=== PATIENT | male | born 1955 | race Caucasian/White ===

== ENCOUNTER 2017-02-12 16:19 | Emergency (ER) | payer BC ==
[2017-02-12 16:24] VITALS: TEMP 97.9
--- NOTE | 2017-02-12 16:53 | ED ---
General Adult HPI - General Chief complaint: ENT Stated complaint: Face Swelling Time Seen by Provider: 02/12/17 16:35 Source: patient, RN notes reviewed Mode of arrival: ambulatory Limitations: no limitations - History of Present Illness Initial comments: 61 yo male presents to the ER with cc of right sided facial swelling and some tenderness to palpation. Patient states this started yesterday when he was eating something. He HAD A LITTLE BIT OF DISCOMFORT. PATIENT STATES IMMEDIATELY GETS IS SOMEWHAT TIGHT SENSATION AND PAIN TO THE RIGHT SIDE OF THE FACE. HE STATES THAT HE'S BEEN IRREGULAR BEFORE. DENIES ANY FEVER CHILLS NAUSEA OR VOMITING WITH THIS. THEY WERE CONCERNED DUE TO THE PATIENT'S CONTINUED SYMPTOMS SO THEY THOUGHT THAT THEY SHOULD BE EVALUATED. Patient denies any recent fever, chills, shortness of breath, chest pain, back pain, abdominal pain, nausea vomiting, numbness or tingling, dysuria or hematuria, constipation or diarrhea, headaches or visual changes, or any other current symptoms. - Related Data Home Medications Medication Instructions Recorded Confirmed Aspirin [Adult Low Dose Aspirin EC] 81 mg PO DAILY 02/12/17 02/12/17 Cholecalciferol (Vitamin D3) 2,000 unit PO DAILY 02/12/17 02/12/17 [Vitamin D3] Fish Oil/Dha/Epa [Fish Oil 1,200 1 cap PO DAILY 02/12/17 02/12/17 mg Fish Oil] Multivitamins, Thera [Multivitamin 1 tab PO DAILY 02/12/17 02/12/17 (formulary)] Ubidecarenone [Co Q-10] 1 cap PO DAILY 02/12/17 02/12/17 Previous Rx's Medication Instructions Recorded Atorvastatin [Lipitor] 80 mg PO HS #30 tab 10/24/13 Clindamycin [Cleocin] 450 mg PO Q8HR #90 capsule 02/12/17 Allergies Allergy/AdvReac Type Severity Reaction Status Date / Time amoxicillin trihydrate AdvReac Nausea & Verified 02/12/17 16:39 [From Augmentin] Vomiting codeine AdvReac Nausea & Verified 02/12/17 16:39 Vomiting potassium clavulanate AdvReac Nausea & Verified 02/12/17 16:39 [From Augmentin] Vomiting Review of Systems ROS Statement: Those systems with pertinent positive or pertinent negative responses have been documented in the HPI. ROS Other: All systems not noted in ROS Statement are negative. Past Medical History Past Medical History: Hyperlipidemia, Myocardial Infarction (NM), Sleep Apnea/ CPAP/BIPAP Additional Past Medical History / Comment(s): kidney stones x 9, [place] with use of hearing aids Last Myocardial Infarction Date:: 10/22/13 History of Any Multi-Drug Resistant Organisms: None Reported Past Surgical History: No Surgical Hx Reported, Heart Catheterization, Heart Catheterization With Stent Additional Past Surgical History / Comment(s): Kidney stone post lithotripsy and post kidney stone extraction surgically. History of obstructive sleep apnea. Right hand skin graft for nonhealing lesion. Past Anesthesia/Blood Transfusion Reactions: Postoperative Nausea & Vomiting ( PONV) Date of Last Stent Placement:: 10/22/2013 Past Psychological History: No Psychological Hx Reported Smoking Status: Former smoker Past Alcohol Use History: None Reported Past Drug Use History: None Reported - Past Family History Father Family Medical History: Vascular Disorder (Father at age of 73 from a brain aneurysm and he has kidney stones.) Additional Family Medical History / Comment(s): kidney stones Mother Family Medical History: Diabetes Mellitus (Mother at age of 52 from diabetes mellitus type 2) Sister(s) Family Medical History: No Reported History (Patient has one sister no major medical problems) Daughter(s) Family Medical History: No Reported History (Patient has one daughter no major medical problems) Son(s) Family Medical History: No Reported History (Patient has one son no major medical problems.) General Exam - General Exam Comments Initial Comments: General exam: Alert, active, comfortable in no apparent distress Head: Normocephalic, Swelling over the Right Lateral. Face. Some Swelling over the Parotid Gland However Tenderness Patient over the Salivary Gland Eyes: Normal reaction of pupils, equal size, normal range of extraocular motion Ears: normal external ear canals, pink tympanic membranes with normal cone of light Nose: clear with pink turbinates Throat: no erythema or exudates with normal sized tonsils Neck: no masses, no nuchal rigidity Chest: no chest wall deformity Lungs: equal air entry with no crackles or wheeze CVS: S1 and S2 normal with no audible mumurs, regular rhythm, femorals equal on both sides. Abdomen: no hepatosplenomegaly, normal bowel sounds, no guarding or rigidity Spine: no scoliosis or deformity Skin: no rashes Neurological: No focal deficits, tone is normal in all 4 extremities Limitations: no limitations Course Vital Signs 02/12/17 16:21 Temperature 97.9 F Pulse Rate 78 Respiratory 18 Rate Blood Pressure 136/85 O2 Sat by Pulse 98 Oximetry Medical Decision Making - Medical Decision Making 61-year-old female presents with what appears to be salivary gland inflammation. We'll start him on antibiotics. We discussed using sour candies. We discussed follow-up return parameters all patient's questions. He stated that he understood he is agreement this plan. All questions have been answered. He will be discharged. - Lab Data Result diagrams: 02/12/17 16:55 Lab Results 02/12/17 Range/Units 16:55 WBC 8.5 (3.8-10.6) k/uL RBC 5.56 (4.30-5.90) m/uL Hgb 16.1 (13.0-17.5) gm/dL Hct 50.8 (39.0-53.0) % MCV 91.4 (80.0-100.0) fL MCH 29.0 (25.0-35.0) pg MCHC 31.7 (31.0-37.0) g/dL RDW 14.3 (11.5-15.5) % Plt Count 223 (150-450) k/uL Neutrophils % 50 % Lymphocytes % 35 % Monocytes % 6 % Eosinophils % 7 % Basophils % 1 % Neutrophils # 4.2 (1.3-7.7) k/uL Lymphocytes # 3.0 (1.0-4.8) k/uL Monocytes # 0.5 (0-1.0) k/uL Eosinophils # 0.6 (0-0.7) k/uL Basophils # 0.1 (0-0.2) k/uL Disposition Clinical Impression: Parotitis, acute Disposition: HOME SELF-CARE Condition: Stable Instructions: Mumps in Adults (ED), Parotid Duct Obstruction (ED) Additional Instructions: Please use medication as discussed. Please follow up with family doctor if symptoms have not improved over the next two days. Please return to the emergency room if your symptoms increase or worsen or for any other concerns. Prescriptions: Clindamycin [Cleocin] 450 mg PO Q8HR #90 capsule Referrals: Linwood Gold DO [Primary Care Provider] - 1-2 days Time of Disposition: 17:26
[2017-02-12 17:07] LABS: Basophils # (A) 0.1 k/uL (0-0.2); Basophils % (A) 1 %; CH 29.3; CHCM 32.3; Eosinophils # (A) 0.6 k/uL (0-0.7); Eosinophils % (A) 7 %; HCT 50.8 % (39.0-53.0); HDW 2.25; HGB 16.1 gm/dL (13.0-17.5); Luc # (Auto) 0.13; Luc % (Auto) 2; Lymphocytes % (A) 35 %; MCHC 31.7 g/dL (31.0-37.0); MCV 91.4 fL (80.0-100.0); Mean Platelet Volume 6.9; Monocytes # (A) 0.5 k/uL (0-1.0); Monocytes % (A) 6 %; Neutrophils # (A) 4.2 k/uL (1.3-7.7); Neutrophils % (A) 50 %; RBC 5.56 m/uL (4.30-5.90); RDW 14.3 % (11.5-15.5); WBC 8.5 k/uL (3.8-10.6); WBC (Perox) 8.19
[2017-02-12 17:17] LABS: ALT 38 U/L (21-72); AST 26 U/L (17-59); Alkaline Phosphatase 89 U/L (38-126); Anion Gap 10 mmol/L; Blood Urea Nitrogen 14 mg/dL (9-20); Carbon Dioxide 27 mmol/L (22-30); Chloride 107 mmol/L (98-107); Glucose 103 mg/dL (74-99); Non-African American GFR(MDRD) >60 (>60 ml/min/1.73 sqM); Potassium 4.6 mmol/L (3.5-5.1); Sodium 144 mmol/L (137-145); Total Bilirubin 0.5 mg/dL (0.2-1.3); Total Protein 7.7 g/dL (6.3-8.2)
[2017-02-12 17:24] LABS: Amylase 609 U/L (30-110)
[2017-02-12 17:36] VITALS: BP 132/72; PULSE 95; RESP 16
== END 2017-02-12 17:35 | disposition home or self-care (01) ==
LOC: EC 16:19
DX: K11.21 Acute sialoadenitis (principal); I25.2 Old myocardial infarction; Z87.891 Personal history of nicotine dependence; Z79.82 Long term (current) use of aspirin; Z79.899 Other long term (current) drug therapy; Z88.0 Allergy status to penicillin; Z88.5 Allergy status to narcotic agent
CPT/HCPCS: 36415; 80053; 82150; 83690; 85025; 99283

== ENCOUNTER 2017-04-09 15:17 | Emergency (ER) | payer BC ==
[2017-04-09 15:38] VITALS: RESP 16
--- NOTE | 2017-04-09 16:26 | ED ---
General Adult HPI - General Chief complaint: GI Bleed Stated complaint: Bleeding Rectrum Time Seen by Provider: 04/09/17 15:50 Source: patient, RN notes reviewed Mode of arrival: ambulatory Limitations: no limitations - History of Present Illness Initial comments: Chief complaint and history of present illness is a 61-year-old male who reports that he had some blood per rectum. There is a small amount of bloody mucus mixed within the stool 1 stool sample. Yesterday the patient reports he had an episode where he felt flushed nauseated and had dry heaves and then it stopped spontaneously. He denies having trouble with hemorrhoids in the past denies constipation or hard stools that might cause fissure. Denies any discomfort with bowel movements. Otherwise patient feels normal. His last colonoscopy was 3 years ago. - Related Data Home Medications Medication Instructions Recorded Confirmed Aspirin [Adult Low Dose Aspirin EC] 81 mg PO DAILY 02/12/17 04/09/17 Cholecalciferol (Vitamin D3) 2,000 unit PO DAILY 02/12/17 04/09/17 [Vitamin D3] Fish Oil/Dha/Epa [Fish Oil 1,200 1 cap PO DAILY 02/12/17 04/09/17 mg Fish Oil] Multivitamins, Thera [Multivitamin 1 tab PO DAILY 02/12/17 04/09/17 (formulary)] Ubidecarenone [Co Q-10] 1 cap PO DAILY 02/12/17 04/09/17 Atorvastatin [Lipitor] 80 mg PO DAILY 04/09/17 04/09/17 Allergies Allergy/AdvReac Type Severity Reaction Status Date / Time amoxicillin trihydrate AdvReac Nausea & Verified 04/09/17 16:08 [From Augmentin] Vomiting codeine AdvReac Nausea & Verified 04/09/17 16:08 Vomiting potassium clavulanate AdvReac Nausea & Verified 04/09/17 16:08 [From Augmentin] Vomiting Review of Systems ROS Statement: Those systems with pertinent positive or pertinent negative responses have been documented in the HPI. Review of systems. Patient denies any headache chest pain shortness breath or problems. All systems are reviewed. Past medical problems significant for hyperlipidemia, previous CT, sleep apnea with CPAP multiple kidney stones. Surgeries include cardiac catheterization with one stent placed. Kidney stone removal and right hand skin graft. The patient's family history sister might have had a polyp removed. Patient has ALLERGIES to Augmentin and codeine. He does smoke strongly encouraged to stop denies alcohol use. ROS Other: All systems not noted in ROS Statement are negative. Past Medical History Past Medical History: Hyperlipidemia, Myocardial Infarction (CT), Sleep Apnea/ CPAP/BIPAP Additional Past Medical History / Comment(s): kidney stones x 9, [place] with use of hearing aids Last Myocardial Infarction Date:: 10/22/13 History of Any Multi-Drug Resistant Organisms: None Reported Past Surgical History: Heart Catheterization, Heart Catheterization With Stent Additional Past Surgical History / Comment(s): Kidney stone post lithotripsy and post kidney stone extraction surgically. History of obstructive sleep apnea. Right hand skin graft for nonhealing lesion. Past Anesthesia/Blood Transfusion Reactions: Postoperative Nausea & Vomiting ( PONV) Date of Last Stent Placement:: 10/22/2013 Past Psychological History: No Psychological Hx Reported Smoking Status: Former smoker Past Alcohol Use History: None Reported Past Drug Use History: None Reported - Past Family History Father Family Medical History: Vascular Disorder (Father at age of 73 from a brain aneurysm and he has kidney stones.) Additional Family Medical History / Comment(s): kidney stones Mother Family Medical History: Diabetes Mellitus (Mother at age of 52 from diabetes mellitus type 2) Sister(s) Family Medical History: No Reported History (Patient has one sister no major medical problems) Daughter(s) Family Medical History: No Reported History (Patient has one daughter no major medical problems) Son(s) Family Medical History: No Reported History (Patient has one son no major medical problems.) General Exam - General Exam Comments Initial Comments: General: The patient is awake and alert, in no distress, and does not appear acutely ill. Here because he noticed some blood per rectum and some mucus-like blood on the stool. Vital signs show temperature 97.1 pulse 70 respiratory rate 16 pulse ox 99% room air blood pressure 139/88 Eye: Pupils are equal, round and reactive to light, extra-ocular movements are intact ; there is normal conjunctiva bilaterally. No signs of icterus. Ears, nose, mouth and throat: There are moist mucous membranes and no oral lesions. Neck: The neck is supple, there is no tenderness, no anterior cervical lymphadenopathy , thyroid not enlarged. Cardiovascular: There is a regular rate and rhythm. No murmur, rub or gallop is appreciated. Respiratory: Lungs are clear to auscultation, respirations are non-labored, breath sounds are equal. No wheezes, stridor, rales, or rhonchi. Gastrointestinal: Soft, non-distended, non-tender abdomen without masses or organomegaly noted. There is no rebound or guarding present. No CVA tenderness. Bowel sounds are unremarkable. Rectal examination done with the assistance of nurse Elidia, follow stool to be weakly guaiac positive. No external hemorrhoids. No fissures appreciated. No palpable masses within examining finger. Back: There is no tenderness to palpation in the midline. There is no obvious deformity. No rashes noted. Musculoskeletal: Normal ROM, no tenderness, There is no pedal edema. There is no calf tenderness or swelling. Sensation intact. Pulses equal bilaterally 2+. Neurological: Alert oriented no deficits. Skin: Skin is warm and dry and no rashes or lesions are noted. Psychiatric: Cooperative, complaint of any depression or anxiety. Limitations: no limitations Course Vital Signs 04/09/17 15:34 Temperature 97.1 F L Pulse Rate 79 Respiratory 16 Rate Blood Pressure 139/88 O2 Sat by Pulse 99 Oximetry Medical Decision Making - Medical Decision Making medical decision making; patient's here because he noticed some dark colored blood in his stool. Patient's labs show white count of 8.3 hemoglobin 16 hematocrit of 49. INR 1.1. Potassium 4.7 with a BUN 16 creatinine 1.0 to the GFR greater than 60. Glucose 96. Stool guaiac negative. X-ray of the abdomen was done and reviewed by radiologist his findings are nonspecific nonobstructive bowel gas pattern is identified. There is a 80 more for us loop of bowel distended in the right midabdomen of unknown significance or etiology. Supine view of the pelvis. There is moderate amount of stool in the ascending colon. Soft tissue density in the pelvis is felt to be urinary bladder. Impression overall nonobstructive bowel gas pattern. As read by Dr. Richard The patient's labs were reviewed. X-rays reviewed with the patient. The patient did present obvious samples of blood. Stool guaiac though was negative. The plant this time the patient is not having any abdominal pain. No evidence of internal or external hemorrhoids. No fissures appreciated. The patient will be advised to call follow-up with his family physician. He's return emergency room develops abdominal pain or severe cramping or bleeding per rectum. Advised increase his fluids. Use Tylenol for discomfort. - Lab Data Result diagrams: 04/09/17 16:15 04/09/17 16:15 Lab Results 04/09/17 04/09/17 04/09/17 Range/Units 16:15 16:15 16:15 WBC 8.3 (3.8-10.6) k/uL RBC 5.45 (4.30-5.90) m/uL Hgb 16.1 (13.0-17.5) gm/dL Hct 49.3 (39.0-53.0) % MCV 90.3 (80.0-100.0) fL MCH 29.5 (25.0-35.0) pg MCHC 32.6 (31.0-37.0) g/dL RDW 14.1 (11.5-15.5) % Plt Count 237 (150-450) k/uL Neutrophils % 47 % Lymphocytes % 40 % Monocytes % 5 % Eosinophils % 4 % Basophils % 1 % Neutrophils # 3.9 (1.3-7.7) k/uL Lymphocytes # 3.4 (1.0-4.8) k/uL Monocytes # 0.4 (0-1.0) k/uL Eosinophils # 0.4 (0-0.7) k/uL Basophils # 0.1 (0-0.2) k/uL PT (9.0-12.0) sec INR (<1.2) APTT (22.0-30.0) sec Sodium 145 (137-145) mmol/L Potassium 4.7 (3.5-5.1) mmol/L Chloride 107 (98-107) mmol/L Carbon Dioxide 27 (22-30) mmol/L Anion Gap 11 mmol/L BUN 16 (9-20) mg/dL Creatinine 1.02 (0.66-1.25) mg/dL Est GFR (MDRD) Af Amer >60 (>60 ml/min/1.73 sqM) Est GFR (MDRD) Non-Af >60 (>60 ml/min/1.73 sqM) Glucose 96 (74-99) mg/dL Calcium 9.9 (8.4-10.2) mg/dL Total Bilirubin 0.5 (0.2-1.3) mg/dL AST 24 (17-59) U/L ALT 42 (21-72) U/L Alkaline Phosphatase 100 (38-126) U/L Total Creatine Kinase 122 (55-170) U/L CK-MB (CK-2) 0.9 (0.0-2.4) ng/mL CK-MB (CK-2) Rel Index 0.7 Total Protein 7.3 (6.3-8.2) g/dL Albumin 4.4 (3.5-5.0) g/dL Stool Occult Blood (Negative) 04/09/17 04/09/17 Range/Units 16:15 16:15 WBC (3.8-10.6) k/uL RBC (4.30-5.90) m/uL Hgb (13.0-17.5) gm/dL Hct (39.0-53.0) % MCV (80.0-100.0) fL MCH (25.0-35.0) pg MCHC (31.0-37.0) g/dL RDW (11.5-15.5) % Plt Count (150-450) k/uL Neutrophils % % Lymphocytes % % Monocytes % % Eosinophils % % Basophils % % Neutrophils # (1.3-7.7) k/uL Lymphocytes # (1.0-4.8) k/uL Monocytes # (0-1.0) k/uL Eosinophils # (0-0.7) k/uL Basophils # (0-0.2) k/uL PT 10.3 (9.0-12.0) sec INR 1.1 (<1.2) APTT 24.8 (22.0-30.0) sec Sodium (137-145) mmol/L Potassium (3.5-5.1) mmol/L Chloride (98-107) mmol/L Carbon Dioxide (22-30) mmol/L Anion Gap mmol/L BUN (9-20) mg/dL Creatinine (0.66-1.25) mg/dL Est GFR (MDRD) Af Amer (>60 ml/min/1.73 sqM) Est GFR (MDRD) Non-Af (>60 ml/min/1.73 sqM) Glucose (74-99) mg/dL Calcium (8.4-10.2) mg/dL Total Bilirubin (0.2-1.3) mg/dL AST (17-59) U/L ALT (21-72) U/L Alkaline Phosphatase (38-126) U/L Total Creatine Kinase (55-170) U/L CK-MB (CK-2) (0.0-2.4) ng/mL CK-MB (CK-2) Rel Index Total Protein (6.3-8.2) g/dL Albumin (3.5-5.0) g/dL Stool Occult Blood Negative (Negative) Disposition Clinical Impression: Hematochezia Disposition: HOME SELF-CARE Condition: Stable Instructions: Gastrointestinal Bleeding (ED), Rectal Bleeding (ED) Additional Instructions: Patient's fluids, use Tylenol for pain. Call follow up with your family physician for further evaluation and colonoscopy. If bleeding increases significantly return emergency room Referrals: Linwood Gold DO [Primary Care Provider] - 1-2 days Time of Disposition: 17:21
[2017-04-09 16:35] LABS: Basophils # (A) 0.1 k/uL (0-0.2); Basophils % (A) 1 %; Eosinophils # (A) 0.4 k/uL (0-0.7); Eosinophils % (A) 4 %; HCT 49.3 % (39.0-53.0); HGB 16.1 gm/dL (13.0-17.5); Lymphocytes # (A) 3.4 k/uL (1.0-4.8); Lymphocytes % (A) 40 %; MCH 29.5 pg (25.0-35.0); MCHC 32.6 g/dL (31.0-37.0); MCV 90.3 fL (80.0-100.0); Mean Platelet Volume 7.3; Monocytes # (A) 0.4 k/uL (0-1.0); Monocytes % (A) 5 %; Neutrophils # (A) 3.9 k/uL (1.3-7.7); Neutrophils % (A) 47 %; Platelet Count 237 k/uL (150-450); RBC 5.45 m/uL (4.30-5.90); RDW 14.1 % (11.5-15.5); WBC 8.3 k/uL (3.8-10.6)
--- NOTE | 2017-04-09 16:41 | XR ---
EXAMINATION TYPE: XR abdomen 2V DATE OF EXAM: 04/09/2017 CLINICAL HISTORY: Rectal bleeding abdominal pain TECHNIQUE: Single supine KUB image of the abdomen is obtained. COMPARISON: None. FINDINGS: Nonspecific nonobstructive bowel gas pattern is identified. There is a amorphous loop of itzel wel identified in the right mid abdomen of unknown significance or etiology. Supine view of the pelvi s. There is moderate amount stool noted in the ascending colon. Soft tissue density in the pelvis is felt to be the urinary bladder. IMPRESSION: Overall nonobstructive bowel gas pattern.
[2017-04-09 16:46] LABS: ALT 42 U/L (21-72); AST 24 U/L (17-59); Albumin 4.4 g/dL (3.5-5.0); Alkaline Phosphatase 100 U/L (38-126); Anion Gap 11 mmol/L; Blood Urea Nitrogen 16 mg/dL (9-20); Calcium 9.9 mg/dL (8.4-10.2); Carbon Dioxide 27 mmol/L (22-30); Chloride 107 mmol/L (98-107); Glucose 96 mg/dL (74-99); Potassium 4.7 mmol/L (3.5-5.1); Sodium 145 mmol/L (137-145); Total Bilirubin 0.5 mg/dL (0.2-1.3); Total Protein 7.3 g/dL (6.3-8.2)
[2017-04-09 17:04] LABS: Creatine Kinase MB 0.9 ng/mL (0.0-2.4)
[2017-04-09 17:07] LABS: INR 1.1 (<1.2); Partial Thromboplastin Time 24.8 sec (22.0-30.0); Prothrombin Time 10.3 sec (9.0-12.0)
[2017-04-09 17:49] VITALS: BP 130/86; PULSE 76; TEMP 97.8
== END 2017-04-09 17:50 | disposition home or self-care (01) ==
LOC: EC 15:17
DX: K92.1 Melena (principal); E78.5 Hyperlipidemia, unspecified; G47.30 Sleep apnea, unspecified; H91.90 Unspecified hearing loss, unspecified ear; I25.2 Old myocardial infarction; Z87.891 Personal history of nicotine dependence; Z79.82 Long term (current) use of aspirin; Z79.899 Other long term (current) drug therapy; Z88.0 Allergy status to penicillin; Z88.5 Allergy status to narcotic agent; Z99.89 Dependence on other enabling machines and devices; Z97.4 Presence of external hearing-aid
CPT/HCPCS: 36415; 74019; 80053; 82272; 82550; 82553; 85025; 85610; 85730; 99285

== ENCOUNTER 2017-04-13 12:00 | Day surgery (SDC) | payer BC ==
[2017-04-11 16:09] VITALS: BMI 26.9
[~2017-04-13 12:00] MED LIST: LACTATED RINGERS 1,000 ML IV SCH; LIDOCAINE 1% 20 ML VIAL (10MG/ML) FOR IV START INTRADERMA PRN
[2017-04-13 12:35] VITALS: RESP 16; TEMP 97.4
[2017-04-13] MEDS ORDERED: ONDANSETRON 4 MG/2 ML VIAL IVP ONE (12:52)
[2017-04-13] MEDS ORDERED: LIDOCAINE 1% INJ 10MG/ML (20 ML MDV) ONE (13:07)
[2017-04-13] MEDS ORDERED: PROPOFOL 10 MG/ML 20 ML VIAL IV ONE (13:07)
--- NOTE | 2017-04-13 13:52 | P.PCN ---
Date of Procedure: 04/13/17 Procedure(s) Performed: Procedure: Total colonoscopy. Preoperative diagnosis: Rectal bleeding. Postoperative diagnosis: 1. Low-grade internal hemorrhoids without bleeding at the time of this exam, otherwise, exam to the cecum within normal limits. 2. Less than ideal preparation. Preparation: HalfLytely prep. Sedation: Was provided by anesthesia. Brief clinical history: The patient is 61-year-old male with history of polyps who had his last colonoscopy around 4.5 years ago, is referred for this evaluation because of two episodes of rectal bleeding that he experienced earlier this week. The patient was alarmed because of 2 significant episodes 4 or 5 days prior to admission the morning after he was eating out and experienced nausea and dry heaving. Because of his history of polyps and because his bleeding was fresh bleeding per rectum he was referred for this evaluation at this time. He has not had any further bleeding since Monday which is 4 days ago. Procedure: With the patient on his left lateral decubitus position and after informed consent and adequate sedation, the perianal area was inspected and it did not show any fissures or fistulas. There were no masses felt on digital rectal examination. The Olympus CFQ 160L video colonoscope was then inserted in the rectum in the usual fashion and advanced to the cecum. Unfortunately, the preparation was less than ideal and there was thick secretions and fecal debris encountered which was hard to completely wash and suction. However, all material encountered was greenish in color with no evidence of dark or bloody secretions. No obvious polyps or tumors were seen and the mucosa appeared healthy. I retroflexed the endoscope in the rectum before the endoscope was withdrawn. Low-grade internal hemorrhoids were noted with no evidence of bleeding. The patient tolerated the procedure well. Plan: The patient was reassured. Discussed dietary measures and local care for hemorrhoids. He will follow up with you as planned and I will be happy to see if his symptoms recur. Otherwise, we will plan a repeat colonoscopy in 5 years because of his history.
[2017-04-13 14:23] VITALS: BP 104/72; PULSE 62
== END 2017-04-13 14:32 | disposition home or self-care (01) ==
LOC: ORWHC2ENDO 12:00
DX: K64.8 Other hemorrhoids (principal); Z86.010 Personal history of colon polyps; I25.10 Atherosclerotic heart disease of native coronary artery without angina pectoris; E78.5 Hyperlipidemia, unspecified; G47.33 Obstructive sleep apnea (adult) (pediatric); I25.2 Old myocardial infarction; Z79.899 Other long term (current) drug therapy; Z88.1 Allergy status to other antibiotic agents; Z88.5 Allergy status to narcotic agent; F17.210 Nicotine dependence, cigarettes, uncomplicated
CPT/HCPCS: 45378; J2405; J2001; J2704

== ENCOUNTER 2019-01-18 14:01 | Observation (INO) | payer BC ==
[2019-01-18] MEDS ORDERED: ASPIRIN 81 MG PO STA (14:39)
[2019-01-18] MEDS ORDERED: NITROGLYCERIN OINT 1 INCH/GM PACKET TOPICAL STA (14:39)
--- NOTE | 2019-01-18 14:53 | ED ---
General Adult HPI - General Chief complaint: Chest Pain Stated complaint: chest pain h/o stent Source: patient, family, RN notes reviewed, old records reviewed Mode of arrival: ambulatory Limitations: no limitations - History of Present Illness Initial comments: This is a 63-year-old male with past medical history significant for an MT. Patient states she has had a stent placed in the past. Patient states last night he started having chest pain he was on and off until today when it stayed on for the last 4-5 hours. Patient states it also is made him short of breath also made him sweaty. Patient states she's also had some right-sided jaw pain. Patient denies any fever chills recently. Patient does states been nauseous today. Patient denies any headache patient denies numbness weakness. Patient denies any lightheadedness or dizziness per patient denies any leg swelling or calf tenderness. - Related Data Home Medications Medication Instructions Recorded Confirmed Aspirin [Adult Low Dose Aspirin EC] 81 mg PO DAILY 02/12/17 01/18/19 Cholecalciferol (Vitamin D3) 2,000 unit PO DAILY 02/12/17 01/18/19 [Vitamin D3] Fish Oil/Dha/Epa [Fish Oil 1,200 1 cap PO DAILY 02/12/17 01/18/19 mg Fish Oil] Multivitamins, Thera [Multivitamin 1 tab PO DAILY 02/12/17 01/18/19 (formulary)] Ubidecarenone [Co Q-10] 100 mg PO DAILY 02/12/17 01/18/19 Atorvastatin [Lipitor] 80 mg PO DAILY 04/09/17 01/18/19 Allergies Allergy/AdvReac Type Severity Reaction Status Date / Time amoxicillin trihydrate AdvReac Nausea & Verified 01/18/19 15:57 [From Augmentin] Vomiting codeine AdvReac Nausea & Verified 01/18/19 15:57 Vomiting potassium clavulanate AdvReac Nausea & Verified 01/18/19 15:57 [From Augmentin] Vomiting Review of Systems ROS Statement: Those systems with pertinent positive or pertinent negative responses have been documented in the HPI. ROS Other: All systems not noted in ROS Statement are negative. Past Medical History Past Medical History: Hyperlipidemia, Myocardial Infarction (MT), Sleep Apnea/CPAP/BIPAP Additional Past Medical History / Comment(s): large rectal bleeding with stool,kidney stones x 9, AMBLER with use of hearing aids,uses cpap Last Myocardial Infarction Date:: 10/22/12 History of Any Multi-Drug Resistant Organisms: None Reported Past Surgical History: Heart Catheterization, Heart Catheterization With Stent Additional Past Surgical History / Comment(s): Kidney stone post lithotripsy and post kidney stone extraction surgically. Right hand skin graft for nonhealing lesion. Past Anesthesia/Blood Transfusion Reactions: Postoperative Nausea & Vomiting (PONV) Additional Past Anesthesia/Blood Transfusion Reaction / Comment(s): sister has poNV Date of Last Stent Placement:: 10/22/2012 Past Psychological History: No Psychological Hx Reported Smoking Status: Former smoker Past Alcohol Use History: None Reported Past Drug Use History: None Reported - Past Family History Father Family Medical History: Vascular Disorder Additional Family Medical History / Comment(s): kidney stones,brain aneurysm Mother Family Medical History: Cancer, Diabetes Mellitus Additional Family Medical History / Comment(s): leukemia Sister(s) Family Medical History: No Reported History Daughter(s) Family Medical History: No Reported History Son(s) Family Medical History: No Reported History General Exam - General Exam Comments Initial Comments: GENERAL: Patient is well-developed and well-nourished. Patient is nontoxic and well- hydrated and is in mild distress. ENT: Neck is soft and supple. No significant lymphadenopathy is noted. Oropharynx is clear. Moist mucous membranes. Neck has full range of motion without eliciting any pain. EYES: The sclera were anicteric and conjunctiva were pink and moist. Extraocular movements were intact and pupils were equal round and reactive to light. Eyelids were unremarkable. PULMONARY: Unlabored respirations. Good breath sounds bilaterally. No audible rales rhonchi or wheezing was noted. CARDIOVASCULAR: There is a regular rate and rhythm without any murmurs gallops or rubs. ABDOMEN: Soft and nontender with normal bowel sounds. No palpable organomegaly was noted. There is no palpable pulsatile mass. SKIN: Skin is clear with no lesions or rashes and otherwise unremarkable. NEUROLOGIC: Patient is alert and oriented x3. Cranial nerves II through XII are grossly intact. Motor and sensory are also intact. Normal speech, volume and content. Symmetrical smile. MUSCULOSKELETAL: Normal extremities with adequate strength and full range of motion. No lower extremity swelling or edema. No calf tenderness. LYMPHATICS: No significant lymphadenopathy is noted PSYCHIATRIC: Normal psychiatric evaluation. Limitations: no limitations Course Vital Signs 01/18/19 01/18/19 01/18/19 14:08 14:30 15:00 Temperature 97.8 F Pulse Rate 64 63 58 L Respiratory 18 14 12 Rate Blood Pressure 147/89 150/90 147/97 O2 Sat by Pulse 99 95 96 Oximetry 01/18/19 01/18/19 15:30 16:00 Temperature Pulse Rate 64 57 L Respiratory 14 14 Rate Blood Pressure 136/94 130/90 O2 Sat by Pulse 96 94 L Oximetry Medical Decision Making - Medical Decision Making EKG shows sinus bradycardia 59 bpm TX interval is 184 QRS is 94 Q-T intervals 42 QTC is 397. Patient's EKG shows no ST segment elevation or depression or T wave abnormalities are noted. Patient told me he did quit smoking about one year ago. Patient's chest x-ray shows no acute abnormality. patient received an aspirin and Nitropaste in the emergency department he was feeling better after receiving Nitropaste. Patient was also placed on heparin for unstable angina. I spoke with Dr. Bhatia and he agreed to admit the patient admitted the patient wrote admitting orders I consulted cardiology. I continue aspirin nitro and heparin in the hospital. - Lab Data Result diagrams: 01/18/19 14:39 01/18/19 15:11 Lab Results 01/18/19 01/18/19 01/18/19 Range/Units 14:39 14:39 15:11 WBC 7.5 (3.8-10.6) k/uL RBC 5.57 (4.30-5.90) m/uL Hgb 15.9 (13.0-17.5) gm/dL Hct 48.9 (39.0-53.0) % MCV 87.8 (80.0-100.0) fL MCH 28.5 (25.0-35.0) pg MCHC 32.5 (31.0-37.0) g/dL RDW 13.2 (11.5-15.5) % Plt Count 249 (150-450) k/uL Neutrophils % 46 % Lymphocytes % 40 % Monocytes % 6 % Eosinophils % 4 % Basophils % 1 % Neutrophils # 3.4 (1.3-7.7) k/uL Lymphocytes # 3.0 (1.0-4.8) k/uL Monocytes # 0.4 (0-1.0) k/uL Eosinophils # 0.3 (0-0.7) k/uL Basophils # 0.1 (0-0.2) k/uL Sodium 141 (137-145) mmol/L Potassium 4.2 (3.5-5.1) mmol/L Chloride 109 H (98-107) mmol/L Carbon Dioxide 22 (22-30) mmol/L Anion Gap 10 mmol/L BUN 15 (9-20) mg/dL Creatinine 1.06 (0.66-1.25) mg/dL Est GFR (CKD-EPI)AfAm 87 (>60 ml/min/1.73 sqM) Est GFR (CKD-EPI)NonAf 75 (>60 ml/min/1.73 sqM) Glucose 89 (74-99) mg/dL Calcium 9.4 (8.4-10.2) mg/dL Magnesium 1.9 (1.6-2.3) mg/dL Total Bilirubin 0.5 (0.2-1.3) mg/dL AST 42 (17-59) U/L ALT 26 (21-72) U/L Alkaline Phosphatase 114 (38-126) U/L Troponin I <0.012 (0.000-0.034) ng/mL Total Protein 7.1 (6.3-8.2) g/dL Albumin 3.8 (3.5-5.0) g/dL Critical Care Time Critical Care Time: Yes Total Critical Care Time: 35 Disposition Clinical Impression: Unstable angina pectoris Disposition: ADMITTED IP TO THIS HOSP Referrals: Linwood Gold DO [Primary Care Provider] - 1-2 days Time of Disposition: 16:57
[2019-01-18 14:56] LABS: Basophils # (A) 0.1 k/uL (0-0.2); Basophils % (A) 1 %; Eosinophils # (A) 0.3 k/uL (0-0.7); Eosinophils % (A) 4 %; HCT 48.9 % (39.0-53.0); HGB 15.9 gm/dL (13.0-17.5); Lymphocytes % (A) 40 %; MCH 28.5 pg (25.0-35.0); MCHC 32.5 g/dL (31.0-37.0); MCV 87.8 fL (80.0-100.0); Mean Platelet Volume 6.1; Monocytes # (A) 0.4 k/uL (0-1.0); Monocytes % (A) 6 %; Neutrophils # (A) 3.4 k/uL (1.3-7.7); Neutrophils % (A) 46 %; Platelet Count 249 k/uL (150-450); RBC 5.57 m/uL (4.30-5.90); RDW 13.2 % (11.5-15.5); WBC 7.5 k/uL (3.8-10.6)
--- NOTE | 2019-01-18 15:01 | XR ---
EXAMINATION TYPE: XR chest 2V DATE OF EXAM: 01/18/2019 COMPARISON: 10/03/2014 TECHNIQUE: PA and lateral views submitted. HISTORY: Chest pain FINDINGS: No sizable pleural effusion Mild prominence of the ascending aorta and right hilum. Ectasia of the ao rta is seen. No overt failure. No pneumothorax. Hypertrophic and degenerative changes of the spine. S ubsegmental changes involving the lung bases. IMPRESSION: 1. Mild mediastinal widening recommend follow-up CT of the chest. 2. Basilar atelectasis or early infiltrate.
[2019-01-18 15:34] LABS: Albumin 3.8 g/dL (3.5-5.0); Calcium 9.4 mg/dL (8.4-10.2); Magnesium 1.9 mg/dL (1.6-2.3); Potassium 4.2 mmol/L (3.5-5.1); Total Bilirubin 0.5 mg/dL (0.2-1.3); Total Protein 7.1 g/dL (6.3-8.2)
[2019-01-18] MEDS ORDERED: HEPARIN SODIUM,PORCINE 5,000 UNIT/ML 1 ML VIAL IV ONE (16:55)
[2019-01-18] MEDS ORDERED: HEPARIN SOD,PORK IN 0.45% NACL 25,000 UNIT in 0.45% NACL 1 250ML.BAG IV SCH (17:00)
[2019-01-18 17:05] LABS: INR 0.9 (<1.2); Partial Thromboplastin Time 26.2 sec (22.0-30.0); Prothrombin Time 10.2 sec (9.0-12.0)
[2019-01-18] MEDS ORDERED: NITROGLYCERIN SL TABS 0.4 MG TAB SUBLINGUAL PRN (17:16)
[2019-01-18] MEDS: NITROGLYCERIN OINT 1 INCH/GM PACKET TOPICAL SCH ×2 (18:50→23:16)
--- NOTE | 2019-01-18 20:35 | HP ---
HISTORY AND PHYSICAL CHIEF COMPLAINT: Chest pain. 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 He developed some discomfort in the lower anterior chest over the xiphoid process. He waited for a minute to see if it would go away. He tried belching, and it did not disappear. He had a stent placed in 2012. The pain felt similar. This occurred while he was asleep and he describes it as a burning, pressure-like pain without diaphoresis, nausea or shortness of breath. In the emergency room his evaluation was unremarkable and he was admitted for observation. REVIEW OF SYSTEMS: He has had no neurologic problems, change in the vision or the hearing, hemoptysis, sputum production, murmurs, rheumatic fever, syncope, orthopnea, PND, etc. He has had no abdominal pain, hiatal hernia, food intolerance, nausea, vomiting, hematemesis, melena, hematochezia, colitis, diverticulosis, diverticulitis, hemorrhoids, cirrhosis, hematuria, frequency, urgency, nocturia, renal failure, diabetes, etc. Past medical history, family history, and personal and social histories reveal that he is ALLERGIC to PENICILLIN and CODEINE. MEDICATIONS: Medications include: 1. Aspirin 81 mg. 2. Lipitor 80. 3. Vitamin D3. 4. Co Q10. 5. Multivitamins. 6. Fish oil. Surgically he has had problems with kidney stones and had a surgical procedure for stones. He has had a colonoscopy. Laboratory studies were unremarkable. He does not smoke. 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 PHYSICAL EXAMINATION: Blood pressure is 147/97 with a pulse of 58 and regular, respirations of 12, and he is afebrile. In general he appeared to be well developed, well nourished, in no acute distress. Skin color was normal. Skin was warm and dry. Lymph nodes were not enlarged. Head, ears, eyes, nose, mouth and throat were normal. Neck veins were not distended. Carotids were normal. Chest was clear to ausculation and percussion. The cardiac exam demonstrated normal sinus rhythm and no murmurs or extra sounds. The abdomen was soft and nontender without any visceromegaly or masses. Bowel sounds were present. Extremities were normal. Neurologically he was intact. IMPRESSION: 1. Chest pain. 2. History of coronary artery disease. PLAN: 1. Bed rest. 2. IV fluids. 3. Serial EKGs and enzymes. 4. Lipid profile. 5. Cardiology consult. MMADRIENNE / IJN: [id number] /
[2019-01-19 03:47] LABS: Cholesterol 139 mg/dL (<200); HDL Cholesterol 34 mg/dL (40-60); LDL Cholesterol,Calculated 78 mg/dL (0-99); Triglycerides 133 mg/dL (<150)
[2019-01-19] MEDS: NITROGLYCERIN OINT 1 INCH/GM PACKET TOPICAL SCH ×3 (05:01→15:23)
[2019-01-19 06:39] LABS: Cholesterol 142 mg/dL (<200); HDL Cholesterol 37 mg/dL (40-60); LDL Cholesterol,Calculated 85 mg/dL (0-99); Triglycerides 101 mg/dL (<150)
[2019-01-19] MEDS ORDERED: PANTOPRAZOLE 40 MG/10 ML VIAL IVP ONE (07:00)
[2019-01-19] MEDS: SODIUM CHLORIDE 0.9% 1,000 ML IV SCH ×2 (07:19→20:22)
[2019-01-19] MEDS: METOPROLOL TARTRATE 12.5 MG TAB PO SCH ×2 (07:57→20:20)
[2019-01-19] MEDS: ASPIRIN 81 MG PO SCH (07:57)
[2019-01-19] MEDS: ATORVASTATIN 80 MG TAB PO SCH (07:57)
--- NOTE | 2019-01-19 07:59 | CT ---
EXAMINATION TYPE: CT angio thor/abd pel aorta DATE OF EXAM: 01/19/2019 COMPARISON: None HISTORY: Looking for thoracic and abdominal aortic pathology CT DLP: 1780.6 mGycm. Automated Exposure Control for Dose Reduction was Utilized. CONTRAST: CT scan of the thorax, abdomen and pelvis is performed without and with IV Contrast, patient injected with 100 ml mL of Isovue 370. FINDINGS: The lungs are clear. There is no significant axillary, mediastinal or hilar adenopathy There are no large, central pulmonary emboli. Aortic root is dilated measuring 4.1 cm. The proximal arch is aneurysmal measuring 3.8 cm. The remain lorraine of the thoracic aorta and suprarenal abdominal aorta are normal in caliber. There is an infrarena l abdominal aortic aneurysm with maximal transverse diameter 4 cm. There is eccentric thrombus. This extends to the bifurcation. The common iliac arteries are ectatic measuring 1.3 a 1.5 cm respectively . There is no pleural or pericardial fluid. The heart is not enlarged. Within the abdomen, the liver is upper limits of normal in size. The gallbladder is partially contrac miller. Is normal. Both adrenal glands are normal. Both kidneys demonstrate function and appear morphologically normal. The pancreas is normal. No significant retroperitoneal, iliac or inguinal adenopathy. The bladder wall is somewhat thickened but the bladder is not distended. There is no significant diverticular change and there is no radiographic evidence of diverticulitis. The appendix is normal. Small bowel caliber is normal. There is no free fluid and no free air. There is degenerative disc disease and hypertrophic spondylosis within the spine. IMPRESSION: 1. ASCENDING THORACIC AORTIC ANEURYSM. 2. INFRARENAL ABDOMINAL AORTIC ANEURYSM. 3. DEGENERATIVE CHANGES WITHIN THE SPINE.
[2019-01-19] MEDS ORDERED: ASPIRIN 325 MG TAB PO SCH (09:00)
--- NOTE | 2019-01-19 13:41 | CONS ---
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 This gentleman in 2013 presented with an acute inferior MD. He underwent stenting of a totally occluded right coronary artery performed in the setting of an acute inferior MD with an excellent angiographic result. About a year later he came back in 2014 and had a cardiac cath because of chest pain with a negative troponin and at that time, his RCA was patent. He had a 40% mid LAD lesion. Circumflex was free of significant disease. Since then he has followed with his PCP, but did not show up for his appointments here in our office. He comes in today with complaints of discomfort in the chest. Apparently, he was at rest and not doing any physical activity when he started having discomfort in the chest that lasted for about an hour or so. Then he came into the hospital. Pain is located in the epigastric area and the quality of the pain seems probably more of a GI rather than cardiac type presentation. There was some discomfort in the jaw, but this discomfort in the jaw was very brief, lasted a few seconds. He had discomfort in the epigastric area through the night. His 3 sets of troponins are normal. EKG does not reveal any acute changes. He is resting comfortably without symptoms at the time of my evaluation. PAST MEDICAL HISTORY: 1. CAD with inferior MD in 2013, stenting of RCA patent vessels in 2014. 2. Hypertension. 3. Hyperlipidemia. 4. Sleep apnea but does not seem to use his CPAP regularly. 5. History of renal stones status post lithotripsy. MEDICATIONS: At home include Lipitor 80 mg daily, aspirin 81 mg daily, he takes some fish oil and multivitamins. ALLERGIES: TO PENICILLIN AND AUGMENTIN. PHYSICAL EXAMINATION: Blood pressure is 118/70, pulse rate is 70 per minute. HEENT unremarkable. Fundus was not examined by me. Neck is supple. No JVD. I do not hear a carotid bruit. There is no thyromegaly. Heart exam reveals S1, S2 heard normally. No rub, murmur or gallop. Lungs are clear. Abdomen is soft, nontender. Lower extremities reveal normal pulses. No edema. Central nervous system is normal. EKG revealed a sinus mechanism without any acute changes. The patient's echocardiogram from 2013 revealed good systolic function with minimal inferobasal hypokinesia. His acute myocardial infarction did not result any significant damage to the LV. Chest x-ray report suggests some widening of the mediastinum and a CT of the chest was advised. There is some ectasia of the aorta noted. IMPRESSION: 1. Atypical chest pain. 2. History of coronary artery disease, prior inferior myocardial infarction, PCI of RCA in 2013. 3. History of smoking which he quit about a year ago. 4. Hyperlipidemia. RECOMMENDATIONS: I am recommending that we add a small dose of beta rosa to his regimen in the form of Lopressor 12.5 mg b.i.d., discontinue IV heparin and place him on Protonix since I believe his epigastric discomfort seems to be of GI etiology. I will also obtain a CT angio of the chest and abdomen to rule out any thoracic and abdominal aortic aneurysm. I discussed my thoughts in detail with the patient. If these tests are negative, we will consider coronary angiography or a stress test based on clinical course. I will re- evaluate him after the CT angio and response to Protonix. Discussed my thoughts in detail with the patient. Thank you very much for the consult. SARA / ADAMA: [id number] /
--- NOTE | 2019-01-19 14:11 | HP ---
HISTORY AND PHYSICAL CHIEF COMPLAINT: Pain in the left side of the neck. HISTORY OF PRESENT ILLNESS: This is the first admission for this 63-year-old white female. She began to experience some pain in the left side of her neck and area of the sternocleidomastoid muscle. It was not associated with any chest pain. She then developed some numbness in the left anterior neck, jaw and cheek. She had no diplopia or any other neurologic signs or symptoms. She has had no headaches, etc. REVIEW OF SYSTEMS: She has had no shortness of breath, cough, hemoptysis, murmurs, rheumatic fever, orthopnea, PND, etc. She does have treated hypertension. She has had no abdominal pain, nausea, vomiting, hematemesis, indigestion, reflux, melena, hematochezia, diverticulosis, diverticulitis, jaundice, hepatitis, cirrhosis, hematuria, frequency, urgency, vaginal discharge or bleeding, renal failure, diabetes, etc. Past medical history, family history, personal and social histories are otherwise unremarkable and noncontributory. She takes lisinopril and Protonix. ALLERGIES: ASPIRIN AND PENICILLIN. PAST SURGICAL HISTORY: Surgically she has had NovaSure and a procedure on her left hand. Doucette teeth were removed and she recently had an upper GI endoscopy for GERD and was found to have a hiatal hernia. She has had 2 pregnancies and 2 deliveries. SOCIAL HISTORY: She does not drink or smoke. FAMILY HISTORY: She does have a strong family history with the mother who has had 5 CABGs and both her brother and her father also had coronary artery bypasses. She thinks her blood pressure is under good control and she does not know about her cholesterol. PHYSICAL EXAMINATION: Blood pressure 130/91 with a pulse 71 and regular, respirations of 30, and she is afebrile. In general, she appeared to be well developed, well nourished, no acute distress. Skin color is normal. Skin is warm, dry. Lymph nodes not enlarged. Head, ears, eyes, nose, mouth, and throat were normal. Neck veins are not distended. Thyroid is not enlarged. Chest is clear. Cardiac exam is normal and there are no murmurs or extra sounds. There is no murmur transmitted carotids and there are no neck masses. The abdomen is flat, soft, nontender without any visceromegaly or masses. Extremities normal. Neurologically she is intact. IMPRESSION: She is admitted to the hospital diagnoses: 1. Left-sided neck pain. 2. History of hypertension. 3. Strong family history of coronary artery disease. PLAN: 1. Bed rest. 2. IV fluids. 3. Serial EKGs and enzymes. 4. She should probably undergo cardiac testing in the near future because of family history. MMODL / IJN: [id number] /
--- NOTE | 2019-01-19 14:43 | PN ---
PROGRESS NOTE ADMITTING CHIEF COMPLAINT: Chest pain. HISTORY OF PRESENT ILLNESS: This gentleman was about to be discharged, but cardiology ordered the CT of the chest which demonstrated some mild dilatation of the ascending aorta and an abdominal aortic aneurysm with possible intramural clot. The patient will be informed and his discharge will be canceled for today. Consult with vascular surgery has been placed. He will have to be followed for these abnormalities. PHYSICAL EXAMINATION: Chest is clear. Cardiac exam is normal. Abdomen is soft, nontender. IMPRESSION: 1. Chest pain. 2. Dilatation of the ascending aorta. 3. Infrarenal abdominal aortic aneurysm with thrombus. PLAN: Cardiovascular consult. MMODL / IJN: [id number] /
[2019-01-19] MEDS: HEPARIN SODIUM,PORCINE 5,000 UNIT/ML 1 ML VIAL SQ SCH (20:21)
[2019-01-20] MEDS: NITROGLYCERIN OINT 1 INCH/GM PACKET TOPICAL SCH ×3 (01:08→08:38)
[2019-01-20 01:15] VITALS: RESP 16
[2019-01-20] MEDS ORDERED: PANTOPRAZOLE 40 MG TABLET PO STA (05:55)
[2019-01-20] MEDS: METOPROLOL TARTRATE 12.5 MG TAB PO SCH (07:35)
[2019-01-20] MEDS: ATORVASTATIN 80 MG TAB PO SCH (07:35)
[2019-01-20] MEDS: ASPIRIN 81 MG PO SCH (07:35)
[2019-01-20] MEDS: HEPARIN SODIUM,PORCINE 5,000 UNIT/ML 1 ML VIAL SQ SCH (07:35)
--- NOTE | 2019-01-20 07:35 | PN ---
PROGRESS NOTE Mr. Cooley had a comfortable night. He did not have any further chest pain or shortness of breath. His epigastric discomfort has also resolved. He has been ambulating the hallways without symptoms. His vital signs are stable with a blood pressure of 136/70, pulse rate 67 per minute. No JVD or carotid bruit. S1-S2 heard normally. Lungs are clear. Abdomen and lower extremity exam is unchanged. Plan is to increase activity. If he has no further symptoms, he can be discharged and I will see him in the office and perform a stress test as an outpatient. Discussed my thoughts in detail with the patient. He had a CT angio yesterday which revealed a mild dilatation of ascending aorta with some aneurysmal changes, but no significant issues. From a cardiac standpoint, we will discharge him on current medical regimen and I will see him in the office in a week and perform a stress test. Advised not to do any strenuous activity. Protonix seemed to have helped the patient quite a bit. MMODL / IJN: [id number] /
[2019-01-20] MEDS: SODIUM CHLORIDE 0.9% 1,000 ML IV SCH (08:38)
--- NOTE | 2019-01-20 10:23 | P.GSCN ---
History of Present Illness Consult date: 01/20/19 Reason for Consult: Ascending aortic aneurysm Requesting physician: Jose Rawls History of present illness: This is a 63-year-old gentleman who is followed by Dr. Jose Echevarria on an outpatient basis. He is a past medical history significant for hypertension, hyperlipidemia, obstructive sleep apnea with home CPAP use, myocardial infarction in 2013, coronary artery disease with history of stenting to his right coronary artery in 2013, history of tobacco dependence in which he reports he quit smoking 1 year ago and a history of kidney stones status post lithotripsy. The patient presented to the emergency department yesterday 01/19/2019 with complaints of chest pressure and burning sensation to his epigastric area, radiated to his jaw, associated with shortness of breath and nausea. The pain awoke him from a sleep and was not relieved by aspirin, belching or passing flatus. He also reports that the nitroglycerin given to him in the emergency department did not relieve his pain. He denies any emesis, diaphoresis, palpitations, fever, chills, presyncope or syncope. Serial troponins were negative and a 12-lead EKG was completed which showed sinus bradycardia rhythm without any acute ST changes with a heart rate of 59. A chest x-ray was also completed in the emergency department which showed mild mediastinal widening and basilar atelectasis or early infiltrate. Subsequently due to the patient's presenting symptoms, and history of myocardial infarction and coronary artery disease he was seen by Dr. JESSIE Larios from [facility]. A CTA of his thoracic and abdominal aorta was completed which demonstrated some mild dilatation of his ascending aorta with some aneurysmal changes and an infrarenal abdominal aortic aneurysm with a maximal transverse diameter of 4.0 cm. Due to findings on the CTA scan of his thoracic and abdominal aortic scan a consult was placed to Dr. Deshawn Pittman from cardiothoracic surgery for further evaluation and treatment recommendations. Currently the patient denies any complaints of chest pain or shortness of breath. He stated the epigastric discomfort resolved shortly after being admitted to the hospital yesterday. Review of Systems A 14 point review of systems was completed and was negative except as mentioned in the HPI. Past Medical History Past Medical History: Coronary Artery Disease (CAD), Hyperlipidemia, Hypertension, Myocardial Infarction ([place]), Sleep Apnea/CPAP/BIPAP Additional Past Medical History / Comment(s): large rectal bleeding with stool,kidney stones x 9, [place] with use of hearing aids, obstructive sleep apnea uses home cpap Last Myocardial Infarction Date:: 10/22/12 History of Any Multi-Drug Resistant Organisms: None Reported Past Surgical History: Heart Catheterization, Heart Catheterization With Stent Additional Past Surgical History / Comment(s): Kidney stone post lithotripsy and post kidney stone extraction surgically. Right hand skin graft for nonhealing lesion. Past Anesthesia/Blood Transfusion Reactions: No Reported Reaction, Postoperative Nausea & Vomiting (PONV) Additional Past Anesthesia/Blood Transfusion Reaction / Comm: sister has poNV Date of Last Stent Placement:: 10/22/2012 Past Psychological History: No Psychological Hx Reported Smoking Status: Former smoker (Smoking 1 year ago) Past Alcohol Use History: None Reported Past Drug Use History: None Reported - Past Family History Father Family Medical History: Vascular Disorder Additional Family Medical History / Comment(s): kidney stones,brain aneurysm Mother Family Medical History: Cancer, Diabetes Mellitus Additional Family Medical History / Comment(s): leukemia Sister(s) Family Medical History: No Reported History Daughter(s) Family Medical History: No Reported History Son(s) Family Medical History: No Reported History Medications and Allergies Home Medications Medication Instructions Recorded Confirmed Type Aspirin [Adult Low Dose Aspirin EC] 81 mg PO DAILY 02/12/17 01/18/19 History Cholecalciferol (Vitamin D3) 2,000 unit PO DAILY 02/12/17 01/18/19 History [Vitamin D3] Fish Oil/Dha/Epa [Fish Oil 1,200 1 cap PO DAILY 02/12/17 01/18/19 History mg Fish Oil] Multivitamins, Thera [Multivitamin 1 tab PO DAILY 02/12/17 01/18/19 History (formulary)] Ubidecarenone [Co Q-10] 100 mg PO DAILY 02/12/17 01/18/19 History Atorvastatin [Lipitor] 80 mg PO DAILY 04/09/17 01/18/19 History Allergies Allergy/AdvReac Type Severity Reaction Status Date / Time amoxicillin trihydrate AdvReac Nausea & Verified 01/18/19 15:57 [From Augmentin] Vomiting codeine AdvReac Nausea & Verified 01/18/19 15:57 Vomiting potassium clavulanate AdvReac Nausea & Verified 01/18/19 15:57 [From Augmentin] Vomiting Surgical - Exam Vital Signs Temp Pulse Resp BP Pulse Ox 97.8 F 64 18 147/89 99 01/18/19 14:08 01/18/19 14:08 01/18/19 14:08 01/18/19 14:08 01/18/19 14:08 - General well developed, well nourished, no distress, no pain, obese - Eyes PERRL, normal ocular movement - ENT normal pinna, normal nares, normal mucosa, no hearing loss, no congestion - Neck Neck is supple, no lymphadenopathy. no masses, no bruits, trachea midline, no venous distension - Respiratory Lungs are essentially clear throughout. Respirations are symmetrical and nonlabored. No wheezes, rhonchi or crackles appreciated. - Cardiovascular Regular rhythm and rate. S1 and S2 present, negative for S3, gallop or murmur. - Abdomen Abdomen is soft, nontender and nondistended. Active bowel sounds present in all 4 abdominal quadrants. - Genitourinary Deferred - Rectum Deferred - Integumentary no rash, no growths, no abnormal pigmentation - Neurologic Cranial nerves II through XII intact. normal coordination, normal sensation - Musculoskeletal normal gait, normal posture - Psychiatric oriented to time, oriented to person, oriented to place, speech is normal, memory intact Results - Labs 01/18/19 14:39 01/18/19 15:11 - Imaging Chest x-ray: report reviewed, image reviewed CT scan - chest: report reviewed, image reviewed EKG: image reviewed Assessment and Plan Assessment: 1. Mild dilatation of his ascending aorta 2. Atypical chest pain 3. History of coronary artery disease with prior myocardial infarction in 2013 with previous stenting of his right coronary artery in 2013 4. History of hypertension 5. History of hyperlipidemia 6. History of kidney stones, status post lithotripsy 7. History of nicotine dependence, quit smoking 1 year ago. Plan: The patient was seen and examined on the observation unit. His chart and diagnostics were reviewed. His case was discussed in detail with Dr. Deshawn schulz from cardiothoracic surgery. No surgical intervention is warranted at this time. Recommendations are for strict blood pressure control, follow up as an outpatient basis with serial CAT scans of his chest to reevaluate his mild dilatation of his aorta. He may need a 2-D echocardiogram on an outpatient basis to determine whether he has a bicuspid aortic valve. Encouraged continue smoking cessation. He will also need to follow-up with vascular surgery to monitor his abdominal aortic aneurysm. This was discussed in detail with the patient and his . The patient wishes to follow-up on an outpatient basis with Dr. Mccord from vascular surgery and Dr. Kael Ibarra at [facility] as this is closer to their residence. Continue to maximize medical therapy, continue aspirin, statin and beta rosa. Medical management and other comorbidities per primary care service. Cardiology management per Dr. JESSIE Larios. Thank you Dr. Rawls for this consult. Time with Patient: Greater than 30
[2019-01-20 12:26] VITALS: BP 129/83; PULSE 62; TEMP 98.6
--- NOTE | 2019-01-20 15:22 | DS ---
DISCHARGE SUMMARY CHIEF COMPLAINT: Chest pain. HISTORY OF PRESENT ILLNESS AND PHYSICAL EXAM: Details of this man's history and physical can be found in the initial workup. LABORATORY STUDIES: While he was in the hospital, he had laboratory studies, details of which can be found in the laboratory section of his chart. COURSE IN HOSPITAL: After admission, he was placed on bedrest, started on intravenous fluids and he had serial EKGs and enzymes. He was seen by Cardiology. He had no indications of acute coronary syndrome. However, he underwent a CT of the chest which demonstrated some dilatation of the ascending aorta as well as dilatation of the infrarenal abdominal aorta. These were reviewed by Vascular Surgery. It was felt that he was safe to go home, but he will be following up with Cardiology and Cardiovascular surgery and he was instructed to be that they keep his weight down as well as his cholesterol, exercises, and continue with regular followup. FINAL DIAGNOSES: 1. Chest pain. 2. History of coronary artery disease. 3. Dilatation of the ascending aorta. 4. Dilatation of the infrarenal abdominal aorta. OPERATIONS: None. CONSULTATION: Cardiology, cardiovascular surgery. He is improved. MMODL / IJN: [id number] /
[2019-01-21] MEDS ORDERED: PANTOPRAZOLE 40 MG TABLET PO SCH (09:00)
== END 2019-01-20 12:55 | disposition home or self-care (01) ==
LOC: EC 14:01 → 1SOBS 17:24
PROVIDERS: ADMIT Family Medicine; ATTEND Family Medicine
DX: R07.89 Other chest pain (principal); I71.2 Thoracic aortic aneurysm, without rupture; I71.4 Abdominal aortic aneurysm, without rupture; I74.09 Other arterial embolism and thrombosis of abdominal aorta; I25.10 Atherosclerotic heart disease of native coronary artery without angina pectoris; I10 Essential (primary) hypertension; R06.02 Shortness of breath; R11.0 Nausea; E78.5 Hyperlipidemia, unspecified; G47.33 Obstructive sleep apnea (adult) (pediatric); H91.90 Unspecified hearing loss, unspecified ear; M47.819 Spondylosis without myelopathy or radiculopathy, site unspecified; Z79.82 Long term (current) use of aspirin; Z79.899 Other long term (current) drug therapy; Z88.0 Allergy status to penicillin; Z88.8 Allergy status to other drugs, medicaments and biological substances; Z88.5 Allergy status to narcotic agent; I25.2 Old myocardial infarction; Z87.442 Personal history of urinary calculi; Z99.89 Dependence on other enabling machines and devices; Z91.19 Patient's noncompliance with other medical treatment and regimen; Z97.4 Presence of external hearing-aid; Z87.19 Personal history of other diseases of the digestive system; Z87.891 Personal history of nicotine dependence; Z95.5 Presence of coronary angioplasty implant and graft; Z82.49 Family history of ischemic heart disease and other diseases of the circulatory system; Z83.3 Family history of diabetes mellitus; Z80.6 Family history of leukemia
CPT/HCPCS: 36415; 71046; 71275; 74174; 80053; 80061; 83735; 84484; 85025; 85610; 85730; 93005; 96361; 96365; 96366; 96375; 96376; 99291

== ENCOUNTER → 2024-10-03 | Outpatient (CLI) | payer MEDICARE ==
[2024-10-03 10:22] LABS: Basophils # (A) 0.10 X 10*3/uL (0.00-0.10); Basophils % (A) 1.5 %; Eosinophils # (A) 0.33 X 10*3/uL (0.04-0.35); Eosinophils % (A) 4.9 %; HCT 47.9 % (39.6-50.0); HGB 15.3 g/dL (13.0-17.0); Immature Grans, Automated 0.10 %; Lymphocytes # (A) 2.49 X 10*3/uL (0.90-5.00); Lymphocytes % (A) 37.2 %; MCH 28.5 pg (27.0-32.0); MCHC 31.9 g/dL (32.0-37.0); MCV 89.4 FL (80.0-97.0); Monocytes # (A) 0.56 X 10*3/uL (0.20-1.00); Monocytes % (A) 8.4 %; NRBC Per 100 WBC 0 X 10*3/uL (0.00-0.01); Neutrophils # (A) 3.21 X 10*3/uL (1.80-7.70); Neutrophils % (A) 47.9 %; Platelet Count 230 X 10*3/uL (140-440); RBC 5.36 X 10*6/uL (4.40-5.60); RDW 13.3 % (11.5-14.5); WBC 6.70 X 10*3/uL (4.50-10.00)
[2024-10-03 10:32] LABS: Anion Gap 10.20 mmol/L (4.00-12.00); BUN/Creat Ratio 24.27 Ratio (12.00-20.00); Blood Urea Nitrogen 26.7 mg/dL (9.0-27.0); Calcium 9.3 mg/dL (8.7-10.3); Carbon Dioxide 25.8 mmol/L (21.6-31.8); Chloride 105 mmol/L (96-109); Glucose 116 mg/dL (70-110); Potassium 4.8 mmol/L (3.5-5.5); Sodium 141 mmol/L (135-145)
== END | disposition home or self-care (01) ==
LOC: LABPAT 07:19
PROVIDERS: ATTEND Urology
DX: Z01.812 Encounter for preprocedural laboratory examination (principal); C61 Malignant neoplasm of prostate
CPT/HCPCS: 36415; 80048; 85025

== ENCOUNTER 2024-10-11 08:38 | Day surgery (SDC) | payer MEDICARE ==
--- NOTE | 2024-10-10 21:50 | P.HPIHPCON ---
History of Present Illness H&P Date: 10/10/24 Chief Complaint: Prostate cancer 69-year-old male with history of [place] 7(3+4) prostate cancer, previously on active surveillance but now wants to proceed with definitive treatment. Option of robotic radical prostatectomy versus radiation therapy were discussed. He agreed to proceed with a robotic radical prostatectomy. He is aware of the risk which include but not limited to bleeding, infection, urinary incontinence, erectile dysfunction. Risk of injury to nearby organs also discussed. Risk of cancer recurrence and the need for additional treatments was discussed. He understood all the risk and agreed to proceed Consent for Procedure: I have explained the operation/procedure to the patient, including the risks, benefits, side effects, alternative therapies (including not receiving the proposed treatment or service), the likelihood of the patient achieving his/her goals, and potential recuperation problems for the procedure/sedation/analgesia, as well as any blood products, if indicated. I also explained to the patient the risks, benefits and side effects of the alternatives, as well as the risks related to not receiving the proposed procedure, care, treatment, or services. Past Medical History Past Medical History: Coronary Artery Disease (CAD), Cancer, Hyperlipidemia, Hypertension, Myocardial Infarction ([place]), Sleep Apnea/CPAP/BIPAP Additional Past Medical History / Comment(s): large rectal bleeding with stool,kidney stones x 9, [place] with use of hearing aids, obstructive sleep apnea uses home cpap prostate cancer, pt being monitored yearly for slightly enlarged upper and lower aorta. Last Myocardial Infarction Date:: 10/22/12 History of Any Multi-Drug Resistant Organisms: None Reported Past Surgical History: Heart Catheterization, Heart Catheterization With Stent Additional Past Surgical History / Comment(s): Kidney stone post lithotripsy and post kidney stone extraction surgically ,colonoscopy. Right hand skin graft for nonhealing lesion. Past Anesthesia/Blood Transfusion Reactions: No Reported Reaction, Postoperative Nausea & Vomiting (PONV) Additional Past Anesthesia/Blood Transfusion Reaction / Comment(s): sister has ponv, pt also has ponv Date of Last Stent Placement:: 10/22/2012 Smoking Status: Former smoker - Past Family History Father Family Medical History: Vascular Disorder Additional Family Medical History / Comment(s): kidney stones,brain aneurysm Mother Family Medical History: Cancer, Diabetes Mellitus Additional Family Medical History / Comment(s): leukemia Sister(s) Family Medical History: No Reported History Daughter(s) Family Medical History: No Reported History Son(s) Family Medical History: No Reported History Medications and Allergies Home Medications Medication Instructions Recorded Confirmed Type Aspirin [Adult Low Dose Aspirin EC] 81 mg PO DAILY 02/12/17 10/07/24 History Cholecalciferol (Vitamin D3) 2,000 unit PO DAILY 02/12/17 10/07/24 History [Vitamin D3] Multivitamins, Thera [Multivitamin 1 tab PO DAILY 02/12/17 10/07/24 History (formulary)] Ubidecarenone [Co Q-10] 100 mg PO DAILY 02/12/17 10/07/24 History Atorvastatin [Lipitor] 80 mg PO DAILY 04/09/17 10/07/24 History Magnesium Citrate(Unk) 1 tab PO DAILY 10/07/24 10/07/24 History Metoprolol Tartrate [Lopressor] 25 mg PO BID 10/07/24 10/07/24 History Vit E (Unk) 1 tab PO DAILY 10/07/24 10/07/24 History Zinc(Unk) 1 tab PO DAILY 10/07/24 10/07/24 History Allergies Allergy/AdvReac Type Severity Reaction Status Date / Time amoxicillin trihydrate AdvReac Nausea & Verified 10/07/24 09:16 [From Augmentin] Vomiting codeine AdvReac Nausea & Verified 10/07/24 09:16 Vomiting potassium clavulanate AdvReac Nausea & Verified 10/07/24 09:16 [From Augmentin] Vomiting Surgical - Exam - General no distress, no pain - Eyes normal ocular movement, no pale - ENT normal nares, normal mucosa - Respiratory normal expansion, normal respiratory effort - Abdomen Abdomen: soft, non tender Assessment and Plan Assessment: OR for robotic radical prostatectomy
[2024-10-11] MEDS ORDERED: fentaNYL (PF) 50 MCG/ML 2 ML AMP IVP PRN (09:02)
[2024-10-11] MEDS: IV FLUID CONTINUATION 1,000 ML IV ONE ×3 (09:15)
[2024-10-11] MEDS: DEXAMETHASONE SOD PHOSPHATE 4 MG/ML 1 ML VIAL IV ONE (10:22)
[2024-10-11] MEDS: LIDOCAINE 1% (10MG/ML) FOR IV START INTRADERMA PRN (10:23)
[2024-10-11] MEDS: ONDANSETRON 4 MG/2 ML VIAL IVP ONE (10:23)
[2024-10-11] MEDS: LACTATED RINGERS 1,000 ML IV SCH (10:23)
[2024-10-11] MEDS: MIDAZOLAM 2 MG/2 ML VIAL IV PRN (10:33)
[2024-10-11] MEDS: HEPARIN SODIUM,PORCINE 5,000 UNIT/ML 1 ML VIAL SQ PRN (10:52)
[2024-10-11] MEDS ORDERED: NEOSTIGMINE 1 MG/ML 10 ML VIAL ONE (11:29)
[2024-10-11] MEDS ORDERED: GLYCOPYRROLATE 0.2 MG/ML 2 ML VIAL ONE (11:29)
[2024-10-11] MEDS ORDERED: SUCCINYLCHOLINE CHLORIDE 200 MG/10 ML VIAL IV ONE (11:29)
[2024-10-11] MEDS ORDERED: ROCURONIUM 10 MG/ML (5 ML VIAL) IV ONE (11:29)
[2024-10-11] MEDS ORDERED: DEXAMETHASONE SOD PHOSPHATE 4 MG/ML 1 ML VIAL ONE (11:29)
[2024-10-11] MEDS ORDERED: LIDOCAINE 1% INJ 10MG/ML (20 ML MDV) ONE (11:29)
[2024-10-11] MEDS ORDERED: MIDAZOLAM 2 MG/2 ML VIAL ONE (11:29)
[2024-10-11] MEDS ORDERED: ROPIVACAINE 5 MG/ML 30 ML VIAL ONE (11:29)
[2024-10-11] MEDS ORDERED: fentaNYL (PF) 50 MCG/ML 2 ML AMP ONE (11:29)
[2024-10-11] MEDS ORDERED: PHENYLEPHRINE-0.9% NACL SYG 1,000 MCG/10 ML SYRINGE ONE (11:29)
[2024-10-11] MEDS: BUPIVACAINE (PF) 0.25% 30 ML VIAL SQ ONE ×2 (11:29→14:42)
[2024-10-11] MEDS ORDERED: SODIUM CHLORIDE 0.9% (PF) 10 ML VIAL ONE (11:29)
[2024-10-11] MEDS ORDERED: PROPOFOL 10 MG/ML 20 ML VIAL IV ONE (11:29)
[2024-10-11] MEDS ORDERED: PHENYLEPHRINE 10 MG/ML VIAL ONE (11:29)
[2024-10-11] MEDS ORDERED: ONDANSETRON 4 MG/2 ML VIAL IVP PRN (11:39)
--- NOTE | 2024-10-11 13:21 | P.ANPRN ---
Procedure Note - Anesthesia - Nerve Block Performed Bilateral Erector Spinae Single Time Out Performed: Yes Date of Procedure: 10/11/24 Procedure Start Time: 10:33 Procedure Stop Time: 10:39 Location of Patient: PreOp Indication: Acute Post-Operative Pain, Requested by Surgeon Sedation Type: Sedate with meaningful contact maintained Preparation: Sterile Prep Position: Prone Needle Types: Pajunk Needle Gauge: 21 Ultrasound used to visualize needle placement: Yes Ultrasound used to observe medication spread: Yes Blood Aspirated: No Pain Paresthesia on Injection Noted: No Resistance on Injection: Normal Image Stored and Saved: Yes Events: Uneventful and Well Tolerated (Ropivacaine 0.5% 15 cc plus normal saline 10 cc plus dexamethasone 4 mg given bilaterally at L1)
--- NOTE | 2024-10-11 14:43 | P.OP ---
Date of Procedure: 10/11/24 Preoperative Diagnosis: Prostate cancer Postoperative Diagnosis: Same Procedure(s) Performed: Robotic assisted laparoscopic radical prostatectomy Implants: None Anesthesia: LATISHA Surgeon: Alejandro Bella Estimated Blood Loss (ml): 50 Pathology: other (Prostate, bilateral seminal vesicle, left base margin) Condition: stable Disposition: PACU Indications for Procedure: 69-year-old male with history of [place] 7(3+4) prostate cancer, previously on active surveillance but now wants to proceed with definitive treatment. Option of robotic radical prostatectomy versus radiation therapy were discussed. He agreed to proceed with a robotic radical prostatectomy. He is aware of the risk which include but not limited to bleeding, infection, urinary incontinence, erectile dysfunction. Risk of injury to nearby organs also discussed. Risk of cancer recurrence and the need for additional treatments was discussed. He understood all the risk and agreed to proceed Description of Procedure: After preoperative antibiotics were started, the patient was taken to the operating room. Anesthesia was induced and the patient was placed in a supine position, with adequate padding of the pressure points, shoulders, back, legs and arms. He was then prepped and draped in the standard fashion. A critical pause was performed using two patient identifiers. A 16F romero catheter was placed to gravity drainage. A pneumo-peritoneum was cre ated with placement of a Veress needle to 20 mm Hg without complication, and a 8 Fr trocar was placed above the umbillicus. Under direct vision a 8mm robotic ports was placed lateral to each rectus slightly below the camera port. The left iliac fossa 8mm port was placed. The right gallery assistant right iliac fossa 12mm port and right paramedian 5mm port were placed. After the patient was placed in the trendelenberg position, the robot was then docked to the 8mm robotic ports and then each robotic arm and tower was checked in relation to the patient's legs and hands to avoid inadvertent compression. The peritoneal cavity was inspected. Small bowel adhesions were seen on the right lower quadrant, those were taken down sharply. An inverted U-shaped incision began laterally to the left medial umbilical ligament and extended high across the midline to the right umbilical ligament. The limbs of the "U" extended to the level of the vasa on both sides. We next developed the preperitoneal space and the space of Retzius. Cautery was used to dissected the bladder away from the prostate. After the anterior bladder neck was incised and the bladder entered the the posterior bladder neck was exposed and the ureteral orifces identified. The posterior bladder neck was then incised and dissected away from the prostate. The vas and the seminal vesicles were now exposed and dissected to their insertions into the prostate and were not spared. The posterior layer of the Denonvillier's fascia was incised to enter lino the plane between prostate and perirectal fat. Each lateral pedicle was controlled with vessel sealer, complete nerve preservation was performed bilaterally. There was some thickened tissue along the left base, this was excised and sent as left base margin. The puboprostatic ligament was incised where it inserted into the apex of the prostate and a plane between urethra and dorsal venous complex developed to expose the anterior urethral surface. Of note patient had necrotic prostate tissue along the left apex, right ureteral the tissue was dissected off of the urethra and removed with the prostate. The anterior wall of the urethra was transected with the cut setting a few millimeters distal to the apex of the prostate. The dorsal vein was ligated using 3-0 V lock The urethrovesical anastomosis was performed . the posterior denovillers was reapproximated using 3-0 V lock. A 6 and 6 inch 3-0 V-Lock suture was used to anastomose the urethra and bladder, starting at the 6:00 posterior position. Mucosa was secured in every stitch, to ensure a mucosa to mucosa anastomosis. The stitch was regularly cinched and the anastomosis tightened. Care was taken to not violate the ureteral orifices. The Romero catheter was advanced, the bladder filled, and the anastomosis was tested, as described above. Anastomsis was watertight at 150 mL The periumbilical fascia was closed with 1-0-PDS suture in figure of eight fashion. All ports were closed with a subcuticular 4-0 monocryl and Dermabond. Sponge, instrument, and needle counts were correct at the end of the case x2. All specimens including prostate and lymph nodes were sent to pathology for diagnosis and will be available in a week. The patient tolerated the surgery well and without complication. He awoke without difficulty and was taken to the recovery room in stable condition
[2024-10-11] MEDS: HYDROmorphone 0.5 MG/0.5 ML SYRINGE IVP PRN (15:24)
[2024-10-11] MEDS: KETOROLAC 15 MG/ML 1 ML VIAL IVP SCH (16:02)
[2024-10-11] MEDS: HYDROmorphone 1 MG/ML 1 ML SYRINGE IVP PRN (17:05)
[2024-10-11 18:17] VITALS: RESP 16
[2024-10-11] MEDS: D5-0.45% NACL WITH KCL 20MEQ/L 1,000 ML IV SCH (18:25)
[2024-10-11] MEDS: HEPARIN SODIUM,PORCINE 5,000 UNIT/ML 1 ML VIAL SQ SCH (18:37)
[2024-10-11] MEDS: METOPROLOL TARTRATE 25 MG TAB PO SCH (21:07)
[2024-10-12 08:08] VITALS: BP 123/69; PULSE 85; TEMP 97.9
[2024-10-12] MEDS: ATORVASTATIN 80 MG TAB PO SCH (09:24)
--- NOTE | 2024-10-12 10:52 | P.DS ---
Providers Date of admission: 10/11/2024 Attending physician: Alejandro Bella MD Primary care physician: [place] Hospital Course: Patient was admitted to the hospital 10/11/2024 for robotic assisted radical prostatectomy. He underwent this without incident. Postoperatively his vital signs are stable. Urine is clear. He is ambulated. His wounds look good. There is no evidence of erythema. He is ready for discharge home. He will be discharged home care of his family. Will be given a prescription of Toradol. He has an appointment in our office October 21. Operative instructions have been given. If any further problems arise he should contact our office or Patient Condition at Discharge: Good Plan - Discharge Summary Discharge Rx Participant: No New Discharge Prescriptions: New Ketorolac [Toradol] 10 mg PO Q6HR PRN 7 Days #15 tab PRN Reason: Pain Control No Action Multivitamins, Thera [Multivitamin (formulary)] 1 tab PO DAILY Ubidecarenone [Co Q-10] 100 mg PO DAILY Cholecalciferol (Vitamin D3) [Vitamin D3] 2,000 unit PO DAILY Aspirin [Adult Low Dose Aspirin EC] 81 mg PO DAILY Atorvastatin [Lipitor] 80 mg PO DAILY Vit E (Unk) 1 tab PO DAILY Magnesium Citrate(Unk) 1 tab PO DAILY Metoprolol Tartrate [Lopressor] 25 mg PO BID Zinc(Unk) 1 tab PO DAILY Discharge Medication List Aspirin [Adult Low Dose Aspirin EC] 81 mg PO DAILY 02/12/17 [History] Cholecalciferol (Vitamin D3) [Vitamin D3] 2,000 unit PO DAILY 02/12/17 [History] Multivitamins, Thera [Multivitamin (formulary)] 1 tab PO DAILY 02/12/17 [History] Ubidecarenone [Co Q-10] 100 mg PO DAILY 02/12/17 [History] Atorvastatin [Lipitor] 80 mg PO DAILY 04/09/17 [History] Magnesium Citrate(Unk) 1 tab PO DAILY 10/07/24 [History] Metoprolol Tartrate [Lopressor] 25 mg PO BID 10/07/24 [History] Vit E (Unk) 1 tab PO DAILY 10/07/24 [History] Zinc(Unk) 1 tab PO DAILY 10/07/24 [History] Ketorolac [Toradol] 10 mg PO Q6HR PRN 7 Days #15 tab 10/12/24 [Rx] Follow up Appointment(s)/Referral(s): Alejandro Bella MD [STAFF PHYSICIAN] - 10/21/24 Activity/Diet/Wound Care/Special Instructions: Home with [facility]. Instruct in catheter care. Please provide leg and overnight bag. Discharge Disposition: HOME SELF-CARE
== END 2024-10-12 11:35 | disposition home or self-care (01) ==
LOC: OR 08:38 → 5NMEDONC 14:47 → OR 10-12 11:35
PROVIDERS: ATTEND Urology
DX: C61 Malignant neoplasm of prostate (principal); N41.0 Acute prostatitis; I25.10 Atherosclerotic heart disease of native coronary artery without angina pectoris; I25.2 Old myocardial infarction; E78.5 Hyperlipidemia, unspecified; G47.33 Obstructive sleep apnea (adult) (pediatric); I10 Essential (primary) hypertension; Z87.442 Personal history of urinary calculi; Z87.891 Personal history of nicotine dependence; Z83.3 Family history of diabetes mellitus; Z88.0 Allergy status to penicillin; Z88.1 Allergy status to other antibiotic agents; Z88.5 Allergy status to narcotic agent; Z79.02 Long term (current) use of antithrombotics/antiplatelets; Z79.82 Long term (current) use of aspirin; Z79.899 Other long term (current) drug therapy
CPT/HCPCS: 55866; 64468; 86900; 86901; 86850; J2250; J0330; J1644 ×2; J1100; J2710; J0690; J2405; J2003; J3010; J1171 ×2; J2795; J1885 ×2; J2704; J2371 ×2; J0665; J1596